=== PATIENT | female | born 2000 | race Caucasian/White ===

== ENCOUNTER 2021-01-31 10:41 | Outpatient (CLI) | payer OTHER ==
[2021-01-31 12:56] LABS: Hemoglobin 13.4 g/dL (12.0-15.5); Mean Corpuscular Hemoglobin 29.8 pg (27.0-33.0); Mean Corpuscular Volume 87.8 fl (81.6-98.3); Mean Platelet Volume 9.9 fl (7.4-10.4); Platelet Count 235 10x3/uL (150-450); Red Blood Cell (RBC) Count 4.49 10x6/uL (3.90-5.03)
[2021-01-31 13:25] LABS: BHCG - Serum Negative (NEGATIVE); Pregs Control Background? CLEAR/WHITE (CLR/WHITE); Pregs Control Bar Appear? YES (CONTROL BAR)
== END 2021-01-31 10:42 | disposition home or self-care (01) ==
LOC: LABBT 10:41
PROVIDERS: ATTEND Orthopaedic Surgery Hand Surgery
DX: Z01.812 Encounter for preprocedural laboratory examination (principal); T81.89XA Other complications of procedures, not elsewhere classified, initial encounter
CPT/HCPCS: 84703; 85027

== ENCOUNTER 2021-02-02 09:05 | Day surgery (SDC) | payer OTHER ==
[2021-02-01 10:42] VITALS: BMI 20.5
[2021-02-02] MEDS ORDERED: Mineral Oil Sterile 10ML 10 ML UDCUP ONE ×2 (11:53→11:54)
[2021-02-02] MEDS ORDERED: Thrombin 5000 UNITS/5 ML VIAL ONE (11:53)
[2021-02-02] MEDS ORDERED: Bupivacaine 0.25% HCL 30 ML VIAL ONE (11:53)
[2021-02-02] MEDS ORDERED: Sodium Chloride 0.9% 10 ML ONE (13:10)
[2021-02-02] MEDS ORDERED: Fentanyl 100 MCG/2 ML VIAL ONE (13:41)
[2021-02-02] MEDS ORDERED: Ketorolac Tromethamine 30 MG/ML VIAL ONE (14:00)
[2021-02-02] MEDS ORDERED: Dexamethasone 20 MG/5 ML VIAL ONE (14:00)
[2021-02-02] MEDS ORDERED: PROPOFOL 200 MG/20 ML VIAL ONE (14:00)
[2021-02-02] MEDS ORDERED: Lidocaine 1% PF 5 ML VIAL ONE (14:00)
[2021-02-02] MEDS ORDERED: Ondansetron PF 4 MG/2 ML Vial ONE (14:00)
[2021-02-02] MEDS ORDERED: Bupivacaine PF 0.5% 30 ML VIAL ONE (14:12)
[2021-02-02] MEDS ORDERED: Bacitracin Zinc Ointment 30 gm TUBE ONE (14:29)
== END 2021-02-02 16:43 | disposition home or self-care (01) ==
LOC: SDC 09:05
PROVIDERS: ATTEND Orthopaedic Surgery Hand Surgery
PROC: 0HRFX74 Replacement of Right Hand Skin with Autologous Tissue Substitute, Partial Thickness, External Approach (ICD-10-PCS; principal; 2021-02-02)
PROC: 0JBJ0ZZ Excision of Right Hand Subcutaneous Tissue and Fascia, Open Approach (ICD-10-PCS; principal; 2021-02-02)
DX: S61.200A Unspecified open wound of right index finger without damage to nail, initial encounter (principal); Z79.899 Other long term (current) drug therapy; W26.8XXA Contact with other sharp object(s), not elsewhere classified, initial encounter
CPT/HCPCS: J0690; J1100; J1885; J2405; J2704; J3010; J3490; S0020